=== PATIENT | female | born 1965 | race African-American/Black ===

== ENCOUNTER 2017-05-09 12:10 | Emergency (ER) | payer OTHER ==
[~2017-05-09] VITALS: Ht 167.6 cm; Wt 86.2 kg
--- NOTE | ~2017-05-09 | CR230 ---
[facility] A Service of [facility] & [facility] RADIOLOGY TEXT RESULTS PATIENT: GLADIS DAS LOCATION: [facility] : 65 UNIT #: [id number] AGE: [address]: Primo Pizarro MD SEX: F ORDER DR: [id number] [facility] [address] [place], [place] [address] [id number] E MR#: [id number] Acc #: [id number] NAME: GLADIS DAS : 1965 SEX: F STUDY DATE/TIME: 05/09/2017 UNIT: [facility] ROOM: STUDY DESCRIPTION: CR Shoulder Min 2 View Rt Attending Physician: Primo Pizarro M.D. Ordering Physician: Primo Pizarro M.D. MEDICAL IMAGING REPORT This report is preliminary unless electronic signature is present EXAM Right shoulder 3 views 05/09/2017 1323 hours HISTORY Patient fell today with right shoulder pain and right lower back pain. COMPARISON Chest film 05/05/2016. FINDINGS AP views in internal and external rotation and a scapula Y-view demonstrate normal bone density, range of motion. There is no fracture or dislocation. Stable spurring at the acromioclavicular joint. IMPRESSION No acute fracture or dislocation. Range of motion appears normal. Stable moderate spurring at the acromial acromioclavicular joint as compared to chest film 05/05/2016. Dictated by... Juany Jennings M.D. THIS IS AN ELECTRONICALLY VERIFIED REPORT Juany Jennings M.D. at 05/10/2017 9:23 AM LORI/renato TD: 05/09/2017 22:05 JOB #: [id number] MEDICAL IMAGING REPORT Page 1 of 1 COPY
--- NOTE | ~2017-05-09 | CR181 ---
[facility] A Service of [facility] & [facility] RADIOLOGY TEXT RESULTS PATIENT: GLADIS DAS LOCATION: [facility] : 65 UNIT #: [id number] AGE: [address]: Primo Pizarro MD SEX: F ORDER DR: [id number] [facility] [address] [place], [place] [address] [id number] E MR#: [id number] Acc #: [id number] NAME: GLADIS DAS : 1965 SEX: F STUDY DATE/TIME: 05/09/2017 13:25 UNIT: [facility] ROOM: STUDY DESCRIPTION: CR Lumbar Spine 2 or 3 Views Attending Physician: Primo Pizarro M.D. Ordering Physician: Primo Pizarro M.D. Primary Care Physician: [facility] MEDICAL IMAGING REPORT This report is preliminary unless electronic signature is present EXAM Lumbar spine series 05/09/2017 1325 hours HISTORY 52-year-old who fell today complaining of right-sided lower back pain. COMPARISON Lumbar spine series 07/11/2014 FINDINGS AP and lateral views and a cone lateral view of the lumbosacral junction were performed. There are 5 non-rib bearing lumbar type vertebrae. There is disc height loss at L4-5 and L5-S1, worsening from 07/11/2014. There is increasing endplate sclerosis and spurring at L4-5. There is facet arthropathy at L4-5 and L5-S1. IMPRESSION 1. No acute fracture or malalignment. 2. There is interval progression of degenerative disc disease at L4-5 greater than L5-S1 as compared to 07/11/2014. Dictated by... Juany Jennings M.D. THIS IS AN ELECTRONICALLY VERIFIED REPORT Juany Jennings M.D. at 05/10/2017 9:23 AM LORI/sujatha TD: 05/09/2017 22:25 JOB #: [id number] MEDICAL IMAGING REPORT Page 1 of 1 COPY
[~2017-05-09 12:10] MED LIST: ACETAMINOPHEN PO; ALDACTONE PO; ALDACTONE25 MG PO; AMLODIPINE BESY10 MG PO; ASPIRIN81 M1 PO; CHLORTHALIDONE25 MG PO; COLACE PO; FAMOTIDINE PO; FERRO-TIME325 MG PO; FERROUS SULFATE PO; FLEXERIL PO; HCTZ PO; HYDRALAZINE HC100 MG PO; K-DUR20 ME1 PO; KCL PO; LISINOPRIL PO; LOPRESSOR PO; LOPRESSOR100 MG PO; METOPROLOL SUC100 MG PO; MICRO-K PO; NAPROSYN500 MG PO; NORCO 7.5-3251 EACH PO; NORVASC PO; NORVASC2.5 MG PO; POLYSACC IRON150 MG PO; TOPROL XL PO; VICODIN 5/1 TAB 5/50 PO
== END 2017-05-09 14:22 | disposition home or self-care (01) ==
LOC: CED 12:10
DX: S46.911A Strain of unspecified muscle, fascia and tendon at shoulder and upper arm level, right arm, initial encounter (principal); S39.012A Strain of muscle, fascia and tendon of lower back, initial encounter; Z23 Encounter for immunization; W01.0XXA Fall on same level from slipping, tripping and stumbling without subsequent striking against object, initial encounter; Y92.69 Other specified industrial and construction area as the place of occurrence of the external cause; Y99.0 Civilian activity done for income or pay
CPT/HCPCS: 72100; 73030; 90471; 90715; 96374; 99283; J1885